=== PATIENT | female | born 1990 | race American Indian/Alaskan Native ===

== ENCOUNTER 2016-07-23 21:42 | Observation (INO) | payer MEDICAID ==
[2016-07-23] MEDS ORDERED: LACTATED RINGERS 1,000 ML ONE (22:17)
[2016-07-23] MEDS ORDERED: LACTATED RINGERS 1,000 ML IV SCH (22:55)
[2016-07-23 23:18] VITALS: BP 119/67
--- NOTE | 2016-07-24 07:26 | Ultrasound Report ---
OB LIMITED Technique: Transabdominal ultrasound with Doppler interrogation. Gestation: Single Amniotic Fluid: Normal NYASIA = 10.8 cm Heart Rate: 120 BPM
== END 2016-07-23 23:55 | disposition home or self-care (01) ==
LOC: LD 21:42 → INTOOBSV 21:42
PROVIDERS: ADMIT Obstetrics & Gynecology; ATTEND Obstetrics & Gynecology
DX: Z34.90 Encounter for supervision of normal pregnancy, unspecified, unspecified trimester (principal); Z3A.00 Weeks of gestation of pregnancy not specified
CPT/HCPCS: 59025; 76815; G0378; G0379; J7120

== ENCOUNTER 2016-08-07 19:38 | Outpatient (CLI) | payer MEDICAID ==
[2016-08-07 19:59] VITALS: BP 136/80
[2016-08-07] MEDS ORDERED: NITRATEST PAPER MC ONE (20:20)
== END 2016-08-07 21:25 | disposition home or self-care (01) ==
LOC: TRG 19:38
PROVIDERS: ATTEND Obstetrics & Gynecology
DX: O47.1 False labor at or after 37 completed weeks of gestation (principal); Z3A.39 39 weeks gestation of pregnancy
CPT/HCPCS: 59025

== ENCOUNTER 2019-10-29 09:28 | Emergency (ER) | payer MEDICAID, SELFPAY ==
--- NOTE | 2019-10-29 09:52 | Emergency Department Report ---
ED General Adult HPI - General Chief complaint: Abdominal Pain Stated complaint: ABD PAIN/7WEEKS Time Seen by Provider: 10/29/19 09:37 Source: patient, EMS Mode of arrival: Stretcher Limitations: No Limitations - History of Present Illness Initial comments: 29-year-old female states she took 3 home tests are positive. The states she is about 7 weeks . She states that she was out and she felt the pain in the right groin area. There was no bleeding. She did not feel faint. She denies fever or chills. She arrived via EMS. She is relatively comfortable at the time of my encounter. Assuming her test was accurate she is . Apparently she was seen here in 2017 when she decided to have her baby at home rather than going to her scheduled OB clinics at [facility] with Dr. Simeon: - Patient Problems (1) Elevated blood pressure Current Visit: Yes Status: Acute (2) Encounter for care after unplanned out of hospital delivery Onset Date: ~08/08/16 Current Visit: Yes Status: Acute (3) Morbid obesity -: Gradual, minutes(s) Location: right Radiation: other (Groin) Quality: other (Crampy) Consistency: now resolved Improves with: none Worsens with: none Associated Symptoms: denies other symptoms Treatments Prior to Arrival: none - Related Data Previous Rx's Medication Instructions Recorded Last Taken Type Albuterol Sulfate [Ventolin HFA] 2 puff IH Q4H PRN #1 hfa.aer.ad 01/30/15 Unknown Rx Fluticasone [Flonase] 1 spray NS QDAY #1 bottle 01/30/15 Unknown Rx Montelukast [Singulair] 10 mg PO QPM #30 tablet 01/30/15 Unknown Rx Acetaminophen/Codeine [Tylenol #3] 1 tab PO Q6H PRN #15 tab 07/12/15 Unknown Rx Penicillin Vk [Veetids TAB] 500 mg PO QID #40 tablet 07/12/15 Unknown Rx HYDROcodone/APAP 5-325 [[place] 1 each PO Q4HR PRN #10 tablet 10/09/15 Unknown Rx 5/325] Sulfamethoxazole/Trimethoprim 1 each PO BID #14 tablet 10/09/15 Unknown Rx [Bactrim DS TAB] Doxylamine Succinate/Vit B6 1 each PO Q6HR PRN #30 tablet. 01/21/16 Unknown Rx [Diclegis Dr 10-10 mg Tablet] Nitrofurantoin Hubbard/M-Cryst 100 mg PO Q12HR #14 capsule 01/21/16 Unknown Rx [Macrobid CAP] Ferrous Sulfate [Feosol 325 MG tab] 325 mg PO BID #60 tablet 08/09/16 Unknown Rx Ibuprofen [Motrin 800 MG tab] 800 mg PO Q6H PRN #30 tablet 08/09/16 Unknown Rx Nitrofurantoin Hubbard/M-Cryst 100 mg PO Q12HR #14 capsule 10/29/19 Unknown Rx [Macrobid CAP] Allergies Allergy/AdvReac Type Severity Reaction Status Date / Time iodine Allergy Swelling Verified 08/08/16 01:55 shellfish derived Allergy Swelling Verified 07/12/15 18:10 ED Review of Systems ROS: Stated complaint: ABD PAIN/7WEEKS Other details as noted in HPI Constitutional: denies: chills, fever Eyes: denies: eye pain, eye discharge, vision change ENT: denies: ear pain, throat pain Respiratory: denies: cough, shortness of breath, wheezing Cardiovascular: denies: chest pain, palpitations Endocrine: no symptoms reported Gastrointestinal: abdominal pain. denies: nausea, diarrhea Genitourinary: as per HPI, abnormal menses. denies: urgency, dysuria, discharge Musculoskeletal: denies: back pain, joint swelling, arthralgia Skin: denies: rash, lesions Neurological: denies: headache, weakness, paresthesias Psychiatric: denies: anxiety, depression Hematological/Lymphatic: denies: easy bleeding, easy bruising ED Past Medical Hx - Past Medical History Hx Hypertension: No Hx Congestive Heart Failure: No Hx Diabetes: No Hx Deep Vein Thrombosis: No Hx Renal Disease: No Hx Sickle Cell Disease: No Hx Seizures: No Hx Asthma: No Hx COPD: No Hx HIV: No - Social History Smoking Status: Current Every Day Smoker - Medications Home Medications: Home Medications Medication Instructions Recorded Confirmed Last Taken Type Albuterol Sulfate [Ventolin HFA] 2 puff IH Q4H PRN #1 hfa.aer.ad 01/30/15 08/08/16 Unknown Rx Fluticasone [Flonase] 1 spray NS QDAY #1 bottle 01/30/15 08/08/16 Unknown Rx Montelukast [Singulair] 10 mg PO QPM #30 tablet 01/30/15 08/08/16 Unknown Rx Acetaminophen/Codeine [Tylenol #3] 1 tab PO Q6H PRN #15 tab 07/12/15 08/08/16 Unknown Rx Penicillin Vk [Veetids TAB] 500 mg PO QID #40 tablet 07/12/15 08/08/16 Unknown Rx HYDROcodone/APAP 5-325 [[place] 1 each PO Q4HR PRN #10 tablet 10/09/15 08/08/16 Unknown Rx 5/325] Sulfamethoxazole/Trimethoprim 1 each PO BID #14 tablet 10/09/15 08/08/16 Unknown Rx [Bactrim DS TAB] Doxylamine Succinate/Vit B6 1 each PO Q6HR PRN #30 tablet. 01/21/16 08/08/16 Unknown Rx [Diclegis Dr 10-10 mg Tablet] Nitrofurantoin Hubbard/M-Cryst 100 mg PO Q12HR #14 capsule 01/21/16 08/08/16 Unknown Rx [Macrobid CAP] Ferrous Sulfate [Feosol 325 MG tab] 325 mg PO BID #60 tablet 08/09/16 Unknown Rx Ibuprofen [Motrin 800 MG tab] 800 mg PO Q6H PRN #30 tablet 08/09/16 Unknown Rx Nitrofurantoin Hubbard/M-Cryst 100 mg PO Q12HR #14 capsule 10/29/19 Unknown Rx [Macrobid CAP] ED Physical Exam - General Limitations: Physical Limitation General appearance: obese - Head Head exam: Present: atraumatic, normocephalic - Eye Eye exam: Present: normal appearance. Absent: scleral icterus - ENT ENT exam: Present: mucous membranes moist - Neck Neck exam: Present: normal inspection - Respiratory Respiratory exam: Present: normal lung sounds bilaterally. Absent: respiratory distress - Cardiovascular Cardiovascular Exam: Present: regular rate, normal rhythm. Absent: systolic murmur, diastolic murmur, rubs, gallop - GI/Abdominal GI/Abdominal exam: Present: soft, normal bowel sounds. Absent: distended, tenderness, guarding, rebound, organomegaly, mass, bruit, pulsatile mass, hernia - Extremities Exam Extremities exam: Present: normal inspection - Back Exam Back exam: Present: normal inspection - Neurological Exam Neurological exam: Present: alert, oriented X3, CN II-XII intact. Absent: motor sensory deficit - Psychiatric Psychiatric exam: Present: normal affect, normal mood - Skin Skin exam: Present: warm, dry, intact, normal color. Absent: rash ED Course Vital Signs 10/29/19 10/29/19 10/29/19 09:41 09:55 09:57 Temperature 98.6 F Pulse Rate 78 78 Respiratory 18 18 18 Rate Blood Pressure 118/62 Blood Pressure 132/78 [Left] O2 Sat by Pulse 99 100 Oximetry 10/29/19 10:38 Temperature 98.6 F Pulse Rate 72 Respiratory 18 Rate Blood Pressure Blood Pressure 122/68 [Left] O2 Sat by Pulse 100 Oximetry ED Medical Decision Making - Lab Data Result diagrams: 10/29/19 10:14 10/29/19 10:14 Laboratory Results - last 24 hr 10/29/19 10/29/19 10/29/19 09:36 10:14 10:14 WBC 8.4 RBC 3.37 L Hgb 9.9 L Hct 30.4 MCV 90 MCH 29 MCHC 33 RDW 16.4 H Plt Count 214 Lymph % (Auto) 39.5 H Hubbard % (Auto) 5.1 Eos % (Auto) 1.4 Baso % (Auto) 0.5 Lymph # 3.3 Hubbard # 0.4 Eos # 0.1 Baso # 0.0 Seg Neutrophils % 53.5 Seg Neutrophils # 4.5 Sodium 136 L Potassium 4.1 Chloride 104.2 Carbon Dioxide 21 L Anion Gap 15 BUN 8 Creatinine 0.5 L Estimated GFR > 60 BUN/Creatinine Ratio 16 Glucose 95 Calcium 9.0 HCG, Quant Urine Color Yellow Urine Turbidity Cloudy Urine pH 8.0 H Ur Specific [place] 1.021 Urine Protein <15 mg/dl Urine Glucose (UA) Neg Urine Ketones Neg Urine Blood Lg Urine Nitrite Neg Urine Bilirubin Neg Urine Urobilinogen 2.0 Ur Leukocyte Esterase Lg Urine WBC (Auto) 53.0 H Urine RBC (Auto) > 182.0 U Epithel Cells (Auto) 35.0 H Urine Bacteria (Auto) 1+ Urine Mucus 1+ 10/29/19 10:14 WBC RBC Hgb Hct MCV MCH MCHC RDW Plt Count Lymph % (Auto) Hubbard % (Auto) Eos % (Auto) Baso % (Auto) Lymph # Hubbard # Eos # Baso # Seg Neutrophils % Seg Neutrophils # Sodium Potassium Chloride Carbon Dioxide Anion Gap BUN Creatinine Estimated GFR BUN/Creatinine Ratio Glucose Calcium HCG, Quant 5040 H Urine Color Urine Turbidity Urine pH Ur Specific [place] Urine Protein Urine Glucose (UA) Urine Ketones Urine Blood Urine Nitrite Urine Bilirubin Urine Urobilinogen Ur Leukocyte Esterase Urine WBC (Auto) Urine RBC (Auto) U Epithel Cells (Auto) Urine Bacteria (Auto) Urine Mucus Critical care attestation.: If time is entered above; I have spent that time in minutes in the direct care of this critically ill patient, excluding procedure time. ED Disposition Clinical Impression: Early stage of UTI (urinary tract infection) Qualifiers: Urinary tract infection type: site unspecified Hematuria presence: with hematuria Qualified Code(s): N39.0 - Urinary tract infection, site not specified; R31.9 - Hematuria, unspecified Disposition: - TO HOME OR SELFCARE Is pt being admited?: No Does the pt Need Aspirin: No Condition: Stable Instructions: Abdominal Pain (ED), (ED), Urinary Tract Infection in Women (ED) Additional Instructions: It appears that you have an early . However a follow-up ultrasound is necessary as well as continued OB care. It also appears that you may have a urinary tract infection. Rx Macrobid. 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 Return to the emergency department any acute change or problem. Prescriptions: Nitrofurantoin Hubbard/M-Cryst [Macrobid CAP] 100 mg PO Q12HR #14 capsule Time of Disposition: 12:56
[2019-10-29 10:41] LABS: Basophils % (Auto) 0.5 % (0.0-1.8); Eosinophils # (Auto) 0.1 K/mm3 (0.0-0.4); Eosinophils % (Auto) 1.4 % (0.0-4.3); Hematocrit 30.4 % (30.3-42.9); Hemoglobin 9.9 gm/dl (10.1-14.3); Lymphocytes # (Auto) 3.3 K/mm3 (1.2-5.4); Lymphocytes % (Auto) 39.5 % (13.4-35.0); Mean Corpuscular HGB Conc 33 % (30-34); Mean Corpuscular Volume 90 fl (79-97); Monocytes # (Auto) 0.4 K/mm3 (0.0-0.8); Monocytes % (Auto) 5.1 % (0.0-7.3); Platelet Count 214 K/mm3 (140-440); Red Blood Count 3.37 M/mm3 (3.65-5.03); Red Cell Distribution Width 16.4 % (13.2-15.2)
[2019-10-29 10:43] LABS: Bacteria,Urine 1+ /HPF (Negative); Bilirubin,Urine NEG (Negative); Blood,Urine LG (Negative); Color,Urine Yellow (Yellow); Mucus,Urine 1+ /HPF; Protein,Urine <15 mg/dL mg/dL (Negative)
[2019-10-29 10:47] LABS: RBC,Urine > 182.0 /HPF (0.0-6.0)
[2019-10-29 10:59] LABS: BUN/Creatinine Ratio 16; Blood Urea Nitrogen 8 mg/dL (7-17); Hemolysis Index 3
[2019-10-29 11:39] VITALS: BP 122/68
--- NOTE | 2019-10-29 12:35 | Ultrasound Report ---
US OB <= 14 weeks fetus, US OB transvaginal INDICATION / CLINICAL INFORMATION: pain 6 weeks. COMPARISON: None available. FINDINGS: Uterus measures 11 cm. There is an intrauterine gestational sac with yolk sac. A definite pole is not clearly visualized. Right ovary is not identified. The left ovary measures 3.5 x 2.4 cm and appears normal. No fluid collections are seen in the cul-de-sac. IMPRESSION: 1. Intrauterine gestational sac with yolk sac. Signer Name: Savage Smith MD Signed: 10/29/2019 12:31 PM Workstation Name: [id number]
== END 2019-10-29 14:00 | disposition home or self-care (01) ==
LOC: ED 09:28
DX: O23.41 Unspecified infection of urinary tract in pregnancy, first trimester (principal); O99.331 Smoking (tobacco) complicating pregnancy, first trimester; Z3A.01 Less than 8 weeks gestation of pregnancy; Z91.013 Allergy to seafood; Z91.041 Radiographic dye allergy status; Z79.899 Other long term (current) drug therapy
CPT/HCPCS: 36415; 76801; 76817; 80048; 81001; 84702; 85025; 87086